=== PATIENT | male | born 1960 | race Caucasian/White ===

== ENCOUNTER 2018-05-24 05:54 | Day surgery (SDC) | payer MEDICARE, OTHER ==
[2018-05-24] MEDS ORDERED: FENTAnyl 50 MCG/ML VIAL IV (08:00)
[2018-05-24] MEDS ORDERED: HYDROmorphONE 1 MG/5 ML IV SYRINGE IV (08:00)
[2018-05-24] MEDS ORDERED: LABETALOL HCL 20MG INJ IV (08:00)
[2018-05-24] MEDS ORDERED: ONDANSETRON 4 MG INJ IV (08:00)
[2018-05-24] MEDS ORDERED: hydrALAzine 20 MG INJ IV (08:00)
[2018-05-24] MEDS ORDERED: PROPOFOL 60 ML (08:26)
== END 2018-05-24 11:22 | disposition home or self-care (01) ==
LOC: GIL 05:54
DX: Z12.11 Encounter for screening for malignant neoplasm of colon (principal); K62.1 Rectal polyp; K20.8 Other esophagitis; K29.31 Chronic superficial gastritis with bleeding; I10 Essential (primary) hypertension; E78.5 Hyperlipidemia, unspecified; J44.9 Chronic obstructive pulmonary disease, unspecified; E66.9 Obesity, unspecified; Z68.41 Body mass index [BMI] 40.0-44.9, adult
CPT/HCPCS: 43239; 88305; 88312; 88313